=== PATIENT | female | born 1970 | race Caucasian/White ===

== ENCOUNTER 2021-02-24 08:54 | Inpatient (IN) | payer MEDICAID ==
[~2021-02-24] VITALS: Ht 152.4 cm; Wt 62.6 kg
[2021-02-24 09:54] LABS: BASOPHILS % 0.7 % (0.0-2.0); EOSINOPHILS % 1.5 % (0.0-5.0); HEMATOCRIT. 42.5 % (36.0-48.0); HEMOGLOBIN. 14.9 g/dL (12.0-16.0); LYMPHOCYTES % 22.7 % (20.0-50.0); MEAN CORPUSCULAR HEMOGLOBIN 29.4 pg (28.0-32.0); MEAN PLATELET VOLUME 9.1 fl (7.4-10.4); MONOCYTES % 5.1 % (2.0-8.0); PLATELET 231 x1000/uL (130-400); RED BLOOD CELL COUNT 5.06 mill/uL (4.2-5.4); RED CELL DISTRIBUTION WIDTH 12.9 % (11.6-14.6)
[2021-02-24 10:00] LABS: CHLORIDE 104 mEq/L (98-107)
[2021-02-24 10:03] LABS: PROTHROMBIN TIME 10.3 sec (9.6-11.0)
[2021-02-24 10:05] LABS: ETHANOL BLOOD < 10 mg/dL
[2021-02-24 10:07] LABS: LDL CHOLESTEROL 83 mg/dL (5-100)
[2021-02-24 10:20] LABS: CLARITY URINE CLEAR (CLEAR); COLOR URINE YELLOW (YELLOW); KETONES URINE NEGATIVE (NEGATIVE); LEUKOCYTE ESTERASE URINE NEGATIVE (NEGATIVE); NITRITE URINE NEGATIVE (NEGATIVE); OCCULT BLOOD URINE NEGATIVE (NEGATIVE); PH URINE 7.5 (4.5-8.0); PROTEIN URINE NEGATIVE (NEGATIVE); SPECIFIC GRAVITY URINE 1.014 (1.005-1.030); UROBILINOGEN URINE 0.2 E.U./dL (0.2-1.0)
[2021-02-24 10:38] LABS: *COCAINE SCREEN URINE NEGATIVE (NEGATIVE)
[2021-02-24 10:39] LABS: *AMPHETAMINES SCREEN URINE NEGATIVE (NEGATIVE); *BARBITURATES SCREEN URINE NEGATIVE (NEGATIVE); *BENZODIAZEPINES SCREEN URINE NEGATIVE (NEGATIVE); CANNABINOID URINE SCREEN NEGATIVE (NEGATIVE); METHADONE URINE SCREEN NEGATIVE (NEGATIVE); OPIATES URINE SCREEN NEGATIVE (NEGATIVE); PHENCYCLIDINE URINE SCREEN NEGATIVE (NEGATIVE)
[2021-02-24] MEDS ORDERED: IOHEXOL-350 100 ML BOTTLE ONE (10:44)
[2021-02-24 20:00] VITALS: BP_SYST 153; BP_SYST 171; BP_DIAS 75; BP_DIAS 87
[2021-02-24] MEDS ORDERED: METF-416 MT (20:30)
[2021-02-24] MEDS ORDERED: GLIP10TA10 PO (20:30)
[2021-02-24] MEDS ORDERED: LISI40TA13 PO (20:30)
[2021-02-24] MEDS ORDERED: ATOR10TA PO (20:30)
[2021-02-24] MEDS ORDERED: ASPI-1497 PO (20:30)
[2021-02-24] MEDS ORDERED: ENOXAPARIN 40MG/0.4ML SYR SUBCUT SCH (22:15)
[2021-02-24] MEDS ORDERED: ZOLPIDEM TARTRATE 5MG TABLET PO PRN (22:15)
[2021-02-24] MEDS ORDERED: MAGNESIUM/ALUMINUM HYDROXIDE/SIMETHICONE 30ML UDC PO PRN (22:15)
[2021-02-24] MEDS ORDERED: ONDANSETRON HCL 4MG/2ML INJ IV PRN (22:15)
[2021-02-24] MEDS ORDERED: DEXTROSE 50% WATER 50ML SYRINGE IV PRN (22:15)
[2021-02-24] MEDS ORDERED: ACETAMINOPHEN 325MG TABLET PO PRN ×2 (22:15)
[2021-02-24] MEDS ORDERED: DIPHENHYDRAMINE 50MG/ML VIAL IV PRN (22:15)
[2021-02-24] MEDS ORDERED: LORAZEPAM 0.5MG TABLET PO PRN (22:30)
[2021-02-25] VITALS: BP 139/84
[2021-02-25 04:00] VITALS: BP 166/81
[2021-02-25] MEDS: SODIUM CHLORIDE 0.9% INJ 3ML FLUSH IVF SCH ×3 (05:30→21:13)
[2021-02-25] MEDS: BLOOD SUGAR DIAGNOSTIC STRIP TEST SCH ×4 (05:51→20:18)
[2021-02-25] MEDS: OMEPRAZOLE 20MG CAPSULE EXTENDED RELEASE PO SCH ×2 (05:51→20:17)
[2021-02-25] MEDS: INSULIN LISPRO 100 UNITS/ML SUBCUT SCH ×4 (06:10→20:18)
[2021-02-25 08:00] VITALS: BP 172/78
[2021-02-25] MEDS: ENOXAPARIN 40MG/0.4ML SYR SUBCUT SCH (08:25)
[2021-02-25] MEDS: ASPIRIN 325MG EC TABLET PO SCH (08:25)
[2021-02-25 12:16] VITALS: BP 151/77
[2021-02-25] MEDS: AMLODIPINE 2.5MG TABLET PO SCH (12:54)
[2021-02-25 16:00] VITALS: BP 156/76
[2021-02-25] MEDS: CLOPIDOGREL 75MG TABLET PO SCH (17:09)
[2021-02-25] MEDS: METFORMIN HCL 500MG TABLET PO SCH (17:09)
[2021-02-25 20:00] VITALS: BP 152/73
[2021-02-25] MEDS: ATORVASTATIN CALCIUM 20MG TABLET PO SCH (20:18)
[2021-02-25] MEDS: INSULIN GLARGINE UD 100 UNITS/ML SYR SUBCUT SCH (21:15)
[2021-02-26] VITALS (7 sets, daily range): BP systolic 123–178; BP diastolic 63–93
[2021-02-26] MEDS: OMEPRAZOLE 20MG CAPSULE EXTENDED RELEASE PO SCH (05:53)
[2021-02-26] MEDS: GLIPIZIDE 10MG TABLET PO SCH (05:53)
[2021-02-26] MEDS: BLOOD SUGAR DIAGNOSTIC STRIP TEST SCH ×4 (05:53→21:08)
[2021-02-26] MEDS: SODIUM CHLORIDE 0.9% INJ 3ML FLUSH IVF SCH ×3 (05:53→21:11)
[2021-02-26] MEDS: METFORMIN HCL 500MG TABLET PO SCH ×2 (06:10→17:32)
[2021-02-26] MEDS: INSULIN LISPRO 100 UNITS/ML SUBCUT SCH ×4 (06:13→21:10)
[2021-02-26] MEDS: CLOPIDOGREL 75MG TABLET PO SCH (08:42)
[2021-02-26] MEDS: AMLODIPINE 2.5MG TABLET PO SCH (08:42)
[2021-02-26] MEDS: ASPIRIN 325MG EC TABLET PO SCH (08:42)
[2021-02-26] MEDS: ENOXAPARIN 40MG/0.4ML SYR SUBCUT SCH (08:43)
[2021-02-26] MEDS ORDERED: CLONIDINE 0.1MG TABLET PO PRN (16:15)
[2021-02-26] MEDS: ATORVASTATIN CALCIUM 20MG TABLET PO SCH (21:08)
[2021-02-26] MEDS: FAMOTIDINE 20MG TABLET PO SCH (21:08)
[2021-02-26] MEDS: INSULIN GLARGINE UD 100 UNITS/ML SYR SUBCUT SCH (21:10)
[2021-02-27 03:57] VITALS: BP 142/67
[2021-02-27] MEDS: SODIUM CHLORIDE 0.9% INJ 3ML FLUSH IVF SCH ×3 (05:06→21:24)
[2021-02-27] MEDS: BLOOD SUGAR DIAGNOSTIC STRIP TEST SCH ×4 (05:40→20:27)
[2021-02-27] MEDS: FAMOTIDINE 20MG TABLET PO SCH ×2 (05:40→20:17)
[2021-02-27] MEDS: GLIPIZIDE 10MG TABLET PO SCH (05:40)
[2021-02-27] MEDS: INSULIN LISPRO 100 UNITS/ML SUBCUT SCH ×4 (06:10→20:27)
[2021-02-27] MEDS: METFORMIN HCL 500MG TABLET PO SCH ×2 (06:10→16:29)
[2021-02-27 08:00] VITALS: BP 126/83
[2021-02-27] MEDS: CLOPIDOGREL 75MG TABLET PO SCH (08:27)
[2021-02-27] MEDS: AMLODIPINE 2.5MG TABLET PO SCH (08:27)
[2021-02-27] MEDS: ASPIRIN 325MG EC TABLET PO SCH (08:27)
[2021-02-27] MEDS: ENOXAPARIN 40MG/0.4ML SYR SUBCUT SCH (08:27)
[2021-02-27 12:00] VITALS: BP 118/70
[2021-02-27 16:00] VITALS: BP 154/77
[2021-02-27 20:00] VITALS: BP 153/82
[2021-02-27] MEDS: ATORVASTATIN CALCIUM 20MG TABLET PO SCH (20:17)
[2021-02-27] MEDS ORDERED: AMLODIPINE 2.5MG TABLET PO SCH (21:00)
[2021-02-27] MEDS: INSULIN GLARGINE UD 100 UNITS/ML SYR SUBCUT SCH (21:24)
[2021-02-28] VITALS: BP 152/82
[2021-02-28 04:00] VITALS: BP 129/72
[2021-02-28] MEDS: BLOOD SUGAR DIAGNOSTIC STRIP TEST SCH ×4 (06:49→21:00)
[2021-02-28] MEDS: GLIPIZIDE 10MG TABLET PO SCH (06:57)
[2021-02-28] MEDS: FAMOTIDINE 20MG TABLET PO SCH ×2 (06:57→21:00)
[2021-02-28] MEDS: SODIUM CHLORIDE 0.9% INJ 3ML FLUSH IVF SCH ×3 (06:57→21:08)
[2021-02-28] MEDS: INSULIN LISPRO 100 UNITS/ML SUBCUT SCH ×4 (07:10→21:00)
[2021-02-28 08:00] VITALS: BP 153/56
[2021-02-28] MEDS: METFORMIN HCL 500MG TABLET PO SCH ×2 (10:11→18:09)
[2021-02-28] MEDS: CLOPIDOGREL 75MG TABLET PO SCH (10:11)
[2021-02-28] MEDS: ASPIRIN 325MG EC TABLET PO SCH (10:11)
[2021-02-28] MEDS: AMLODIPINE 2.5MG TABLET PO SCH (10:12)
[2021-02-28 12:00] VITALS: BP 145/76
[2021-02-28] MEDS: ENOXAPARIN 40MG/0.4ML SYR SUBCUT SCH (13:20)
[2021-02-28 15:10] LABS: ANTI-DNA DOUBLE STRANDED QUANT < 1 IU/mL (0-9)
[2021-02-28 16:00] VITALS: BP 119/64
[2021-02-28 20:00] VITALS: BP 146/75
[2021-02-28] MEDS: ATORVASTATIN CALCIUM 20MG TABLET PO SCH (21:01)
[2021-02-28] MEDS: INSULIN GLARGINE UD 100 UNITS/ML SYR SUBCUT SCH (21:08)
[2021-03-01] VITALS: BP 120/70
[2021-03-01 04:00] VITALS: BP 140/76
[2021-03-01] MEDS: SODIUM CHLORIDE 0.9% INJ 3ML FLUSH IVF SCH (06:15)
[2021-03-01] MEDS: BLOOD SUGAR DIAGNOSTIC STRIP TEST SCH ×3 (06:16→16:49)
[2021-03-01] MEDS: GLIPIZIDE 10MG TABLET PO SCH (06:16)
[2021-03-01] MEDS: FAMOTIDINE 20MG TABLET PO SCH (06:20)
[2021-03-01] MEDS: INSULIN LISPRO 100 UNITS/ML SUBCUT SCH ×3 (06:22→16:49)
[2021-03-01 08:00] VITALS: BP 161/85
[2021-03-01] MEDS: ENOXAPARIN 40MG/0.4ML SYR SUBCUT SCH (09:15)
[2021-03-01] MEDS: AMLODIPINE 2.5MG TABLET PO SCH ×2 (09:16→09:35)
[2021-03-01] MEDS: METFORMIN HCL 500MG TABLET PO SCH ×2 (09:16→16:52)
[2021-03-01] MEDS: CLOPIDOGREL 75MG TABLET PO SCH (09:16)
[2021-03-01] MEDS: ASPIRIN 325MG EC TABLET PO SCH (09:16)
[2021-03-01 10:07] LABS: ALDOLASE 4.2 U/L (3.3-10.3); ANGIOTENSION CONVERTING ENZYME 15 U/L (14-82)
[2021-03-01 12:00] VITALS: BP 128/76
[2021-03-01 13:09] LABS: ACTIN (SMOOTH MUSCLE) ANTIBODY 18 Units (0-19); ANA IFA Negative (.); ANTI-CARDIOLIPIN AB IGG < 9 GPL U/mL (0-14); ANTI-CARDIOLIPIN AB IGM 11 MPL U/mL (0-12); ANTI-MYELOPEROXIDASE AB < 9.0 U/mL (0.0-9.0); ANTI-PROTEINASE 3 ABS < 3.5 U/mL (0.0-3.5); ATYPICAL P-ANCA <1:20 titer (Neg:<1:20); CYTOPLASMIC C-ANCA <1:20 titer (Neg:<1:20); PERINUCLEAR P-ANCA <1:20 titer (Neg:<1:20)
[2021-03-01 16:00] VITALS: BP 120/79
[2021-03-01 16:20] VITALS: BP 120/79
== END 2021-03-01 17:18 | disposition home or self-care (01) | DRG 45 ==
LOC: ER 08:54 → EDBD 08:54 → MICUSO 11:33 → EDBEDREQSVC 11:48 → EDBEDREQ 11:48 → 7EST 17:23
PROVIDERS: ADMIT Internal Medicine; ATTEND Internal Medicine
DX: I63.9 Cerebral infarction, unspecified (principal); G81.91 Hemiplegia, unspecified affecting right dominant side; E11.9 Type 2 diabetes mellitus without complications; E66.9 Obesity, unspecified; E78.00 Pure hypercholesterolemia, unspecified; M35.9 Systemic involvement of connective tissue, unspecified; G51.0 Bell's palsy; F41.1 Generalized anxiety disorder; I77.6 Arteritis, unspecified; I65.21 Occlusion and stenosis of right carotid artery; E78.5 Hyperlipidemia, unspecified; I10 Essential (primary) hypertension; Z79.02 Long term (current) use of antithrombotics/antiplatelets; Z79.4 Long term (current) use of insulin; Z79.82 Long term (current) use of aspirin; Z79.899 Other long term (current) drug therapy; Z82.49 Family history of ischemic heart disease and other diseases of the circulatory system; Z90.710 Acquired absence of both cervix and uterus; Z68.27 Body mass index [BMI] 27.0-27.9, adult
CPT/HCPCS: 36415; 70496; 70498; 70551; 71045; 80053; 80305; 80320; 81003; 82085; 82164; 82553; 82962; 83036; 83520; 83721; 84484; 85025; 85306; 85651; 86140; 86147; 86160; 86225; 86256; 86592; 86780; 93005; 97162; 97166; 97530; 99291; J1650; J1815; J7040; Q9967; G0480